=== PATIENT | male | born 1995 | race Asian ===

== ENCOUNTER 2019-12-28 14:57 | Emergency (ER) | payer OTHER ==
[~2019-12-28] VITALS: Ht 167.6 cm; Wt 70.5 kg
[2019-12-28 16:29] VITALS: BP 145/82
== END 2019-12-28 16:33 | disposition home or self-care (01) ==
LOC: EMS 14:58
DX: J40 Bronchitis, not specified as acute or chronic (principal); R07.89 Other chest pain
CPT/HCPCS: 93005